=== PATIENT | female | born 1950 | race African-American/Black ===

== ENCOUNTER → 2017-07-09 | Outpatient (CLI) | payer OTHER ==
[2015-12-30 10:24] VITALS: BP 114/75
[~2017-07-09] MED LIST: AMOX875T PO; ATOR20TA58 PO; AZIT250T6 PO; CANA300T PO; ESTR1TAB9 PO; GLIP10TA13 PO; GUAI5LIQ PO; INSU100I13 SQ; LISI1TAB3 PO; MELO15TA23 PO; METF-620 PO; METO25TA4 PO; NAPR500T3 PO; PANT40TA5 PO; PRAV20TA2 PO; PROAIR HFA8.5 GM IH; TRAM50TA PO
--- NOTE | 2017-07-09 11:31 | RAD ---
DATE: 07/09/2017 EXAM: DIGITAL SCREEN BILAT W/CAD HISTORY: Screening COMPARISON: 06/04/2016 This study was interpreted with the benefit of Computerized Aided Detection (CAD). FINDINGS: Breast Density: SCATTERED The breast parenchyma shows scattered fibroglandular densities. Breast parenchyma level B. There has been little change compared to the previous exam IMPRESSION: Benign findings BI-RADS CATEGORY: 2 BENIGN FINDING(S) RECOMMENDED FOLLOW-UP: 12M 12 MONTH FOLLOW-UP PQRS compliance statement: Patient information was entered into a reminder system with a target due date 07/09/2018 for the next mammogram. Mammography is a sensitive method for finding small breast cancers, but it does not detect them all and is not a substitute for careful clinical examination. A negative mammogram does not negate a clinically suspicious finding and should not result in delay in biopsying a clinically suspicious abnormality. "Our facility is accredited by the [employer]ammography [employer]."
== END | disposition home or self-care (01) ==
LOC: MAMMO 10:39
PROVIDERS: ATTEND Pediatrics
DX: Z12.31 Encounter for screening mammogram for malignant neoplasm of breast (principal)
CPT/HCPCS: G0202; 77067

== ENCOUNTER → 2018-07-29 | Outpatient (CLI) | payer OTHER ==
[2015-12-30 10:24] VITALS: BP 114/75
[~2018-07-29] MED LIST changes: -METF-620 PO; +METF10007 PO; +NAPR-514 PO; -NAPR500T3 PO
--- NOTE | 2018-07-29 11:45 | RAD ---
DATE: 07/29/2018 EXAM: MAMMO STEFANIA SCREENING BILATERAL HISTORY: Routine screening COMPARISON: 07/09/2017 This study was interpreted with the benefit of Computerized Aided Detection (CAD). Breast Density: SCATTERED The breast parenchyma shows scattered fibroglandular densities. Breast parenchyma level B. FINDINGS: 2-D and 3-D tomosynthesis imaging was performed in CC and MLO projections. Two old breast biopsy markers are noted laterally in the right breast. Multiple smooth breast nodules are again noted, more so on the left. No new or enlarging densities are seen. There are numerous microcalcifications in both breasts. No suspicious microcalcifications have developed. IMPRESSION: Stable mammograms without evidence of malignancy. BI-RADS CATEGORY: 2 BENIGN FINDING(S) RECOMMENDED FOLLOW-UP: 12M 12 MONTH FOLLOW-UP PQRS compliance statement: Patient information was entered into a reminder system with a target due date for the next mammogram. Mammography is a sensitive method for finding small breast cancers, but it does not detect them all and is not a substitute for careful clinical examination. A negative mammogram does not negate a clinically suspicious finding and should not result in delay in biopsying a clinically suspicious abnormality. "Our facility is accredited by the [employer] Mammography [employer]."
== END | disposition home or self-care (01) ==
LOC: MAMMO 11:01
PROVIDERS: ATTEND Pediatrics
DX: Z12.31 Encounter for screening mammogram for malignant neoplasm of breast (principal)
CPT/HCPCS: 77063; 77067

== ENCOUNTER → 2018-08-20 | Outpatient (CLI) | payer OTHER ==
[2015-12-30 10:24] VITALS: BP 114/75
--- NOTE | 2018-08-20 15:52 | RAD ---
Renal ultrasound History: Stage III chronic kidney disease. Comparison: None. Technique: Transabdominal imaging was performed of the kidneys and bladder. Findings: Right kidney measures 10.1 cm in length. Right kidney is without evidence of obstruction or stone. Left kidney measures 9.6 cm in length. Left kidney is without evidence of obstruction or stone. Both kidneys have appropriate parenchymal echogenicity. Urinary bladder is unremarkable. Visualized aorta and IVC demonstrates normal caliber. Impression: Unremarkable renal ultrasound. Electronically signed by: Hugo Foley MD (08/20/2018 3:49 PM) [place] [id number]
== END | disposition home or self-care (01) ==
LOC: US 11:46
PROVIDERS: ATTEND Internal Medicine Nephrology
DX: I12.9 Hypertensive chronic kidney disease with stage 1 through stage 4 chronic kidney disease, or unspecified chronic kidney disease (principal); E11.22 Type 2 diabetes mellitus with diabetic chronic kidney disease; N18.3 Chronic kidney disease, stage 3 (moderate)
CPT/HCPCS: 76770

== ENCOUNTER 2020-09-29 15:21 | Emergency (ER) | payer MEDICARE, OTHER ==
[~2020-09-29] VITALS: Ht 165.1 cm; Wt 75.0 kg
[~2020-09-29 15:21] MED LIST changes: +ALBU2.5V8 IH; +LISI1TAB23 PO; -LISI1TAB3 PO; -PANT40TA5 PO; +PANT40TA77 PO; -PROAIR HFA8.5 GM IH
--- NOTE | 2020-09-29 15:48 | ED.ADGEN ---
Past Medical History Past Medical History: Diabetes-Type II, GERD, High Cholesterol Additional Past Medical Histor: bronchitis Past Surgical History: Smoking Status: Never Smoker Alcohol Use: None Drug Use: None General Adult EDM: Chief Complaint: DYSPNEA/RESPIRATOY DISTRESS HPI: HPI: Patient is a 69-year-old female [facility] of progressive shortness of air and fatigue. Patient reports 10 days previously she was diagnosed with coronavirus and has been experiencing bouts of improvement only to be followed by continued respiratory difficulty. Patient reports she was evaluated by her primary care physician who placed her on cough medicine as well as steroids for her symptoms. Patient states she has been taking these with minimal relief. Patient states whenever she exerts herself she feels extremely short of air. Despite this she denies pain of any kind. She further denies being short of air at rest and states she can speak in full sentences. She is awake, alert and nontoxic-appearing. Review of Systems: Review of Systems: Constitutional: Reports fatigue. Denies fever or chills. [] Eyes: Denies change in visual acuity. [] HENT: Denies nasal congestion or sore throat. [] Respiratory: Reports cough or shortness of breath. [] Cardiovascular: Denies chest pain or edema. [] GI: Denies abdominal pain, nausea, vomiting, bloody stools or diarrhea. [] : Denies dysuria. [] Musculoskeletal: Denies back pain or joint pain. [] Integument: Denies rash. [] Neurologic: Denies headache, focal weakness or sensory changes. [] Endocrine: Denies polyuria or polydipsia. [] Lymphatic: Denies swollen glands. [] Psychiatric: Denies depression or anxiety. [] Family History: Family History: Noncontributory Allergies: Allergies: Allergies Coded Allergies Type Severity Reaction Last Updated Verified No Known Drug Allergies 12/28/15 No Physical Exam: PE: Constitutional: Well developed, well nourished, no acute distress, non-toxic appearance. [] HENT: Normocephalic, atraumatic, bilateral external ears normal, oropharynx moist, no oral exudates, nose normal. [] Eyes: PERRLA, EOMI, conjunctiva normal, no discharge. [] Neck: Normal range of motion, no tenderness, supple, no stridor. [] Cardiovascular:Heart rate regular rhythm, no murmur [] Lungs & Thorax: Bilateral breath sounds clear to auscultation [] Abdomen: Bowel sounds normal, soft, no tenderness, no masses, no pulsatile masses. [] Skin: Warm, dry, no erythema, no rash. [] Back: No tenderness, no CVA tenderness. [] Extremities: No tenderness, no cyanosis, no clubbing, ROM intact, no edema. [] Neurologic: Alert and oriented X 3, normal motor function, normal sensory function, no focal deficits noted. [] Psychologic: Affect normal, judgement normal, mood normal. [] Current Patient Data: Labs: Laboratory Tests Test 09/29/20 16:03 White Blood Count 8.6 x10^3/uL (4.0-11.0) Red Blood Count 4.11 x10^6/uL (3.50-5.40) Hemoglobin 11.6 g/dL (12.0-15.5) L Hematocrit 35.7 % (36.0-47.0) L Mean Corpuscular Volume 87 fL (79-100) Mean Corpuscular Hemoglobin 28 pg (25-35) Mean Corpuscular Hemoglobin Concent 33 g/dL (31-37) Red Cell Distribution Width 14.7 % (11.5-14.5) H Platelet Count 328 x10^3/uL (140-400) Neutrophils (%) (Auto) 85 % (31-73) H Lymphocytes (%) (Auto) 8 % (24-48) L Monocytes (%) (Auto) 6 % (0-9) Eosinophils (%) (Auto) 0 % (0-3) Basophils (%) (Auto) 0 % (0-3) Neutrophils # (Auto) 7.3 x10^3/uL (1.8-7.7) Lymphocytes # (Auto) 0.7 x10^3/uL (1.0-4.8) L Monocytes # (Auto) 0.5 x10^3/uL (0.0-1.1) Eosinophils # (Auto) 0.0 x10^3/uL (0.0-0.7) Basophils # (Auto) 0.0 x10^3/uL (0.0-0.2) Segmented Neutrophils % 85 % (35-66) H Band Neutrophils % 2 % (0-9) Lymphocytes % 8 % (24-48) L Monocytes % 5 % (0-10) Platelet Estimate Adequate (ADEQUATE) Sodium Level 139 mmol/L (136-145) Potassium Level 4.5 mmol/L (3.5-5.1) Chloride Level 101 mmol/L (98-107) Carbon Dioxide Level 25 mmol/L (21-32) Anion Gap 13 (6-14) Blood Urea Nitrogen 20 mg/dL (7-20) Creatinine 1.2 mg/dL (0.6-1.0) H Estimated GFR (Cockcroft-Gault) 53.6 BUN/Creatinine Ratio 17 (6-20) Glucose Level 338 mg/dL (70-99) H Calcium Level 8.9 mg/dL (8.5-10.1) Total Bilirubin 0.3 mg/dL (0.2-1.0) Aspartate Amino Transferase (AST) 20 U/L (15-37) Alanine Aminotransferase (ALT) 18 U/L (14-59) Alkaline Phosphatase 86 U/L (46-116) Troponin I Quantitative < 0.017 ng/mL (0.000-0.055) WX-Lbj-H-Type Natriuretic Peptide 158 pg/mL (0-124) H Total Protein 7.1 g/dL (6.4-8.2) Albumin 3.0 g/dL (3.4-5.0) L Albumin/Globulin Ratio 0.7 (1.0-1.7) L Laboratory Tests 09/29/20 16:03 Laboratory Tests 09/29/20 16:03 Vital Signs: Vital Signs Date Time Temp Pulse Resp B/P (MAP) Pulse Ox O2 Delivery O2 Flow Rate FiO2 09/29/20 15:30 98.4 88 18 149/66 (93) 97 Room Air 98.4 EKG: EKG: [] EKG was obtained at 1551 hrs. EKG revealed a normal sinus rhythm with a ventricular rate of [address]/T wave changes denoting ischemia. Intervals appear to be within normal limits and there is no evidence of ectopy. Heart Score: HEART Score for Chest Pain: HEART Score for Chest Pain Response (Comments) Value History Slighlty/Non-Suspicious 0 ECG Normal 0 Age > 65 2 Risk Factors >3 Risk Factors or Hx CAD 2 Troponin < Normal Limit 0 Total 4 Risk Factors: Risk Factors: DM, Current or recent (<one month) smoker, HTN, HLP, family history of CAD, obesity. Risk Scores: Score 0 - 3: 2.5% MACE over next 6 weeks - Discharge Home Score 4 - 6: 20.3% MACE over next 6 weeks - Admit for Clinical Observation Score 7 - 10: 72.7% MACE over next 6 weeks - Early Invasive Strategies Radiology/Procedures: Radiology/Procedures: [] Impression: [facility] [address] [place] [address] IMAGING REPORT Signed PATIENT: NANCY BLANDON JACCOUNT: [id number] : 1950 LOCATION: ER AGE: 69 SEX: F EXAM STATUS: REG ER ORD. PHYSICIAN: LANCE PALOMARES DO REASON: Shortness of air/ Covid +/ labs and IV @ 3:50 PROCEDURE: PORTABLE CHEST 1V Exam: Chest one view INDICATION: Shortness of breath TECHNIQUE: Frontal view of the chest Comparisons: 12/28/2015 FINDINGS: The cardiomediastinal silhouette and pulmonary vessels are within normal limits. Subtle patchy airspace disease at the lung bases bilaterally. IMPRESSION: Findings likely related to mild pulmonary edema. Superimposed infectious process is difficult to exclude. Electronically signed by: James Lopez MD (09/29/2020 4:29 PM) [facility] DICTATED and SIGNED BY: JAMES LOPEZ MD DATE: 09/29/20 [id number] 0 Course & Med Decision Making: Course & Med Decision Making Pertinent Labs and Imaging studies reviewed. (See chart for details) [] The patient remains awake, alert and in no acute distress. Specifically the patient has no respiratory distress. I did offer her admission given her di agnosis as well as her comorbid risk factors and the patient politely declined stating she could go home as she felt comfortable in her ability to breathe as well as the fact that she has her at home willing to care for her during this time. I have elected to place her back on a dose of steroids in order to assist with her breathing and have asked that she contact her primary care physician for follow-up with respect to blood sugar management during this time. Should the patient develop any new chest pain or shortness of air I advised that she return to the emergency department. The patient understands and has agreed to do so. She is nontoxic-appearing and resting comfortably. She is stable for discharge [place] Disclaimer: Brandon Disclaimer: This electronic medical record was generated, in whole or in part, using a voice recognition dictation system. Departure Departure Impression: Primary Impression: Respiratory distress Additional Impressions: Hyperglycemia due to diabetes mellitus COVID-19 Disposition: 01 DC HOME SELF CARE/HOMELESS Condition: GOOD Referrals: MERLY BARRIENTOS MD (PCP) Patient Instructions: Hyperglycemia, Upper Respiratory Infection, Adult Additional Instructions: You have been tested for or diagnosed with COVID-19. It is an infection caused by a new type of coronavirus. COVID-19 will cause cold-like or mild flu symptoms in most. It can cause more severe symptoms like problems breathing in some. There is no treatment for COVID-19. The body will clear the infection over time. Self-care will help to ease discomfort. Steps to Take: Self-Care Rest as needed. Healthy habits may help you feel better. Steps include: Choose healthy foods including fruits and vegetables. Drink water throughout the day. Get plenty of sleep each night. If you smoke, try to quit. It may ease breathing. Avoid alcohol. Keep Others Healthy The virus can spread to others. Droplets are released every time you sneeze or cough. The droplets can get into the mouth, nose, or eyes of people near you and lead to infection. To lower the chances of spreading COVID-19 to others: Stay at home until your doctor has said it is safe to leave. If you tested positive this will mean staying isolated until both of the following are true: At least 7 days have passed since the start of illness. You are free of fever for at least 72 hours without the use of medicine. During this time: - Avoid public areas, events, or transportation. Do not return to work or school until your doctor has said it is safe to do so. - Call ahead if you need to go to a medical center. Let them know you may have COVID-19. It will help them guide you where to go. They may also ask you to wear a facemask when you come to the office. - If you call for emergency medical services, let them know you may have COVID- 19. While at home: - Try to avoid close contact with others. Stay about 6 feet away. - If possible, spend most of your time in a separate room from others. - Use a face mask if you will be in close contact with others such as sharing a room or vehicle. - Have someone wipe down common surfaces in the home. Use household [employer] every day on areas like doorknobs, counters, or sinks. - Cough or sneeze into a tissue. Throw the tissue away right after use. If a tissue is not available, cough or sneeze into your elbow. - Wash your hands often. Wash them after sneezing or coughing. Use soap and water and wash for at least 20 seconds. Alcohol based hand laundry or dry cleaners counter clerk can be used if soap and water is not available. - Do not prepare food for others. Avoid sharing personal items like forks, spoons, or toothbrushes. - Avoid close contact with pets while you are sick. There is no evidence of the virus passing to pets. This is a safety step until more is known about this virus. Isolation can be frustrating. Social interaction can help. Keep in touch with friends and family through phone and tech options. You can still interact with others in your home, just keep a safe distance of about 6 feet. Follow-up: Your doctors office will check in with you to see if there are any changes in your health. You may be asked to keep track of symptoms to share with them. They will also let you know when you are clear to be in public again. Problems to Look Out For: Contact your doctor if your recovery is not going as you expect. Get emergency care if you have problems such as: - Trouble breathing - Nonstop chest pain or pressure - Changes in awareness, confusion, or problems waking - Lips or face have bluish color - Worsening of symptoms If you think you have an emergency, call for emergency medical services right away. As taken from [facility] Prednisone (PREDNISONE) 50 Mg Tablet 1 TAB PO DAILY, #5 TAB Prov: LANCE PALOMARES DO 09/29/20 Albuterol Sulfate (VENTOLIN HFA INHALER) 18 Gm Hfa.aer.ad 2 PUFF INH QID for FOR ASTHMA, #1 INHALER 0 Refills Prov: LANCE PALOMARES DO 09/29/20 Problem Qualifiers LANCE PALOMARES DO Sep 29, 2020 15:48
[2020-09-29 16:13] LABS: BASO % 0 % (0-3); EOS % 0 % (0-3); HEMATOCRIT 35.7 % (36.0-47.0); HEMOGLOBIN 11.6 g/dL (12.0-15.5); LYMPH # 0.7 x10^3/uL (1.0-4.8); LYMPH % 8 % (24-48); MEAN CORPUSCULAR HEMOGLOBIN 28 pg (25-35); MEAN CORPUSCULAR HGB CONC 33 g/dL (31-37); MEAN CORPUSCULAR VOLUME 87 fL (79-100); MONO # 0.5 x10^3/uL (0.0-1.1); MONO % 6 % (0-9); NEUT # 7.3 x10^3/uL (1.8-7.7); NEUT % 85 % (31-73); PLATELET COUNT 328 x10^3/uL (140-400); RED BLOOD COUNT 4.11 x10^6/uL (3.50-5.40); RED CELL DISTRIBUTION WIDTH 14.7 % (11.5-14.5); WHITE BLOOD COUNT 8.6 x10^3/uL (4.0-11.0)
--- NOTE | 2020-09-29 16:32 | RAD ---
Exam: Chest one view INDICATION: Shortness of breath TECHNIQUE: Frontal view of the chest Comparisons: 12/28/2015 FINDINGS: The cardiomediastinal silhouette and pulmonary vessels are within normal limits. Subtle patchy airspace disease at the lung bases bilaterally. IMPRESSION: Findings likely related to mild pulmonary edema. Superimposed infectious process is difficult to excl ude. Electronically signed by: James Camp MD (09/29/2020 4:29 PM) [facility]
[2020-09-29 16:38] LABS: CALCIUM 8.9 mg/dL (8.5-10.1); CREATININE 1.2 mg/dL (0.6-1.0); GFR 53.6; POTASSIUM 4.5 mmol/L (3.5-5.1)
[2020-09-29 16:42] LABS: % BANDS 2 % (0-9); % LYMPHS 8 % (24-48); % MONOS 5 % (0-10); % SEGS 85 % (35-66); PLT ESTIMATE ADEQUATE (ADEQUATE)
[2020-09-29 16:44] LABS: ALBUMIN/GLOBULIN RATIO 0.7 (1.0-1.7); TOTAL BILIRUBIN 0.3 mg/dL (0.2-1.0); TOTAL PROTEIN 7.1 g/dL (6.4-8.2)
[2020-09-29] MEDS ORDERED: PRED50TA PO (16:58)
[2020-09-29] MEDS ORDERED: VENTOLIN HFA18 GM INH (16:58)
[2020-09-29 17:15] VITALS: BP 162/72
[2020-09-29] MEDS: INSULIN REGULAR 100 UNIT/ML 3ML VIAL. SQ ONE (17:49)
[2020-09-29] MEDS ORDERED: INSULIN NPH/REG INSULIN 70/30 300 UNITS/3 ML INSULN.PEN. SQ SCH (21:00)
== END 2020-09-29 18:08 | disposition home or self-care (01) ==
LOC: ER 15:21
DX: U07.1 COVID-19 (principal); E11.65 Type 2 diabetes mellitus with hyperglycemia; R06.03 Acute respiratory distress; R05 Cough; E11.9 Type 2 diabetes mellitus without complications; K21.9 Gastro-esophageal reflux disease without esophagitis; E78.00 Pure hypercholesterolemia, unspecified; Z98.890 Other specified postprocedural states
CPT/HCPCS: 36415; 71045; 80053; 83880; 84484; 85007; 85025; 93005; 96372; 99285; J1815